=== PATIENT | male | born 1980 | race Hispanic/Latino ===

== ENCOUNTER 2021-04-06 08:42 | Emergency (ER) | payer OTHER ==
[~2021-04-06] VITALS: Ht 157.5 cm; Wt 72.6 kg
[2021-04-06 08:43] VITALS: BP 133/83
[2021-04-06] MEDS ORDERED: ASPI-1005 PO (10:21)
== END 2021-04-06 10:48 ==
LOC: EDH 08:42
DX: U07.1 COVID-19 (principal); J06.9 Acute upper respiratory infection, unspecified
CPT/HCPCS: 87635; 99283; C9803